=== PATIENT | female | born 2000 | race Caucasian/White ===

== ENCOUNTER 2018-02-10 08:00 | Outpatient (CLI) | payer OTHER | END 2018-02-10 08:01 | disposition home or self-care (01) | LOC: LAB.R 08:00 | PROVIDERS: ATTEND Obstetrics & Gynecology | DX: Z11.3 Encounter for screening for infections with a predominantly sexual mode of transmission (principal) | CPT/HCPCS: 87491; 87591 ==

== ENCOUNTER 2018-04-06 16:53 | Emergency (ER) | payer OTHER ==
--- NOTE | 2018-04-06 17:39 | ED Physician Documentation ---
PD HPI HEADACHE - Stated complaint Stated Complaint: DIZZINESS/NAUSEA - Chief complaint Chief Complaint: General - History obtained from History obtained from: Patient - History of Present Illness Timing - onset: Yesterday (had intermittent visual scotomata and "tunnel vision " yesterday but no headache until this morning, when noted migraine type headache but worse than usual ones. Has had occasional migraines recently, about every 3 weeks or so. Had not had aura/visual changes with them since childhood. No fevers, focal weakness, loss of vision, injury.) Timing - onset during: Sleep Timing - details: Gradual onset, Still present (lessening but still present through the day. She took Excedrin Migraine without improvement and this usually improves her migraines.) Worst headache ever?: No: Worst headache ever? (it is worse than usual migraines but not abrupt/severe headache) Location: Front, Left Quality: Throbbing, Aching Associated symptoms: Nausea. No: Fever, Stiff neck, Vomiting, Weakness, Numbness Improved by: No: Meds Worsened by: Light, Noise Contributing factors: No: Recent illness, Trauma Similar symptoms before: Diagnosis (migraines) Recently seen: Not recently seen Review of Systems Constitutional: denies: Fever, Chills, Myalgias Nose: denies: Rhinorrhea / runny nose, Congestion Throat: denies: Sore throat Respiratory: denies: Cough GI: denies: Nausea, Vomiting, Diarrhea Skin: denies: Rash Neurologic: reports: Headache. denies: Focal weakness, Numbness, Near syncope, Altered mental status, Head injury PD PAST MEDICAL HISTORY - Past Medical History Neuro: Migraines - Past Surgical History Past Surgical History: No - Present Medications Home Medications: Ambulatory Orders Medication Instructions Recorded Confirmed Ondansetron Odt [Zofran] 4 mg TL Q6H PRN #15 tablet 04/06/18 Sumatriptan Succinate [Imitrex] 50 mg PO ONCE PRN #9 tablet 04/06/18 - Allergies Allergies/Adverse Reactions: Allergies Allergy/AdvReac Type Severity Reaction Status Date / Time Penicillins AdvReac Hives Verified 04/06/18 17:02 - Social History Does the pt smoke?: Yes Smoking Status: Current every day smoker Does the pt drink ETOH?: No PD ED PE NORMAL - Vitals Vital signs reviewed: Yes - General General: Alert and oriented X 3, Well developed/nourished, Other (light sensitive) - HEENT HEENT: Atraumatic, Ears normal, Pharynx benign - Neck Neck: Supple, no meningeal sign, No adenopathy - Cardiac Cardiac: RRR, No murmur - Respiratory Respiratory: Clear bilaterally - Abdomen Abdomen: Soft, Non tender - Back Back: No CVA TTP - Derm Derm: Normal color, Warm and dry - Extremities Extremities: No deformity, No tenderness to palpate, Normal ROM s pain - Neuro Neuro: Alert and oriented X 3, fleet director 2-12 intact, No motor deficit, No sensory deficit, Normal speech Eye Opening: Spontaneous Motor: Obeys Commands Verbal: Oriented GCS Score: 15 - Psych Psych: Normal mood, Normal affect Results - Vitals Vitals: Oxygen O2 Source Room air - Labs Labs: Laboratory Tests 04/06/18 04/06/18 17:30 17:30 Urine Color YELLOW Urine Clarity CLEAR Urine pH 5.5 Ur Specific [place] 1.015 1.015 Urine Protein NEGATIVE Urine Glucose (UA) NEGATIVE Urine Ketones NEGATIVE Urine Occult Blood NEGATIVE Urine Nitrite NEGATIVE Urine Bilirubin NEGATIVE Urine Urobilinogen 0.2 (NORMAL) Ur Leukocyte Esterase NEGATIVE Ur Microscopic Review NOT INDICATED Urine Culture Comments NOT INDICATED Urine HCG, Qual NEGATIVE PD MEDICAL DECISION MAKING - ED course Complexity details: re-evaluated patient (initially was going to give subcut Imitrex after talking with her, but then she opted to not get "a shot". Gave oral instead and her headache was about gone after 20-30 minutes. No side effects. Feeling okay. Will give Rx for similar for home. ), considered differential (Sounds like migraine with aura, just a bit worse than her usual ones. ), d/w patient Departure - Departure Disposition: 01 Home, Self Care Clinical Impression: Migraine headache Qualifiers: Migraine type: with aura Status migrainosus presence: without status migrainosus Intractability: not intractable Qualified Code(s): G43.109 - Migraine with aura, not intractable, without status migrainosus Condition: Stable Record reviewed to determine appropriate education?: Yes Instructions: ED Headache Migraine Follow-Up: [facility] [Provider Group] Prescriptions: Ondansetron Odt [Zofran] 4 mg TL Q6H PRN #15 tablet PRN Reason: Nausea / Vomiting Sumatriptan Succinate [Imitrex] 50 mg PO ONCE PRN #9 tablet PRN Reason: Migraine Comments: For subsequent migraines, use the Excedrin Migraine if that is mild and adequate. For worse migraines use the Excedrin Migraine along with Imitrex and ondansetron (nausea medicine and migraine medicine). See if the combination works well for worse migraines. Follow-up with your primary care. If you have more frequent severe migraines, your primary care could also prescribe medications to try to reduce the frequency of them. These are taken on a daily basis rather than just when the headache starts. Typically this reserved for frequent or frequently severe headaches. Discharge Date/Time: 04/06/18 19:28
[2018-04-06 17:48] LABS: BILIRUBIN,URINE NEGATIVE (NEGATIVE); GLUCOSE, URINE (UA) NEGATIVE (NEGATIVE); KETONES,URINE (UA) NEGATIVE (NEGATIVE); LEUKOCYTE ESTERASE, URINE NEGATIVE (NEGATIVE); NITRITE,URINE NEGATIVE (NEGATIVE); OCCULT BLOOD,URINE NEGATIVE (NEGATIVE); PH,URINE 5.5 PH (5.0-7.5); PROTEIN,URINE NEGATIVE (NEGATIVE); UROBILINOGEN,URINE 0.2 (NORMAL) E.U./dL (NORMAL)
[2018-04-06 17:51] LABS: CLARITY,URINE CLEAR (CLEAR)
[2018-04-06 17:52] LABS: HCG UR QUAL NEGATIVE
[2018-04-06] MEDS ORDERED: SUMAtriptan 6 MG/0.5 ML VIAL SUBQ STA (18:09)
[2018-04-06] MEDS ORDERED: ONDANSETRON ODT 4 MG TABLET TL STA (18:09)
[2018-04-06] MEDS ORDERED: DEXAMETHASONE 10 MG/ML VIAL PO STA (18:09)
[2018-04-06] MEDS ORDERED: KETOROLAC 60 MG/2 ML VIAL IM STA (18:09)
[2018-04-06] MEDS ORDERED: SUMAtriptan 25 MG TABLET PO STA (18:37)
[2018-04-06 18:58] VITALS: BP 140/85
== END 2018-04-06 19:28 | disposition home or self-care (01) ==
LOC: ED 16:53
DX: G43.109 Migraine with aura, not intractable, without status migrainosus (principal); F17.200 Nicotine dependence, unspecified, uncomplicated
CPT/HCPCS: 81003; 81025; 99283; A9270; Q0162; 81001; 87086

== ENCOUNTER 2018-04-20 12:51 | Emergency (ER) | payer OTHER ==
[2018-04-20 13:22] LABS: HCG UR QUAL NEGATIVE
--- NOTE | 2018-04-20 15:32 | ED Physician Documentation ---
PD HPI ABD PAIN - Stated complaint Stated Complaint: ABD PAIN - Chief complaint Chief Complaint: Abd Pain - History obtained from History obtained from: Patient - History of Present Illness Timing - onset: Today (2 am) Timing - duration: Hours (10) Timing - details: Abrupt onset, Still present, Waxing and waning Quality: Cramping, Aching, Pain Location: RUQ, Epigastric Radiation: Upper back Improved by: No: Eating, Laying still Worsened by: Eating, Palpation. No: Moving, Breathing Associated symptoms: Nausea, Loss of appetite. No: Fever, Vomiting, Diarrhea, Chest pain, Dizzy, Near syncope / syncope Similar symptoms before: Has not had sx before Recently seen: Not recently seen Review of Systems Constitutional: denies: Fever, Chills Nose: denies: Rhinorrhea / runny nose, Congestion Throat: denies: Sore throat Cardiac: denies: Chest pain / pressure, Palpitations Respiratory: denies: Dyspnea, Cough GI: reports: Abdominal Pain, Nausea. denies: Abdominal Swelling, Vomiting, Diarrhea : denies: Dysuria, Frequency Skin: denies: Rash, Lesions Musculoskeletal: denies: Neck pain, Back pain Neurologic: denies: Generalized weakness, Focal weakness, Numbness PD PAST MEDICAL HISTORY - Past Medical History Neuro: Migraines - Past Surgical History Past Surgical History: No - Present Medications Home Medications: Ambulatory Orders Medication Instructions Recorded Confirmed Ondansetron Odt [Zofran] 4 mg TL Q6H PRN #15 tablet 04/06/18 Sumatriptan Succinate [Imitrex] 50 mg PO ONCE PRN #9 tablet 04/06/18 HYDROcod/ACETAM 5/325 [[place] 5/325] 1 tab PO Q6H PRN #15 tablet 04/20/18 Lidocaine Viscous 2% [Xylocaine 5 ml PO Q4H PRN #1 bottle 04/20/18 Viscous 2%] Ondansetron Odt [Zofran] 4 mg TL Q6H PRN #15 tablet 04/20/18 raNITIdine [Zantac] 150 mg PO BID #40 tablet 04/20/18 - Allergies Allergies/Adverse Reactions: Allergies Allergy/AdvReac Type Severity Reaction Status Date / Time Penicillins AdvReac Hives Verified 04/20/18 13:08 "cilins" Allergy Hives Uncoded 04/20/18 13:08 - Social History Does the pt smoke?: Yes Smoking Status: Current every day smoker Does the pt drink ETOH?: No PD ED PE NORMAL - Vitals Vital signs reviewed: Yes - General General: Alert and oriented X 3, No acute distress, Well developed/nourished - HEENT HEENT: PERRL (nonicteric), Pharynx benign - Neck Neck: Supple, no meningeal sign, No adenopathy - Cardiac Cardiac: RRR, No murmur - Respiratory Respiratory: Clear bilaterally - Abdomen Abdomen: Normal bowel sounds, Soft, Non distended, No organomegaly, Other ( Tender RUQ with some guarding and also epigastric area. No rebound nor percusssion tenderness. Tender [place] sign.) - Female Female : Deferred - Rectal Rectal: Deferred - Back Back: No CVA TTP - Derm Derm: Normal color, Warm and dry, No rash - Extremities Extremities: No deformity, No tenderness to palpate, Normal ROM s pain - Neuro Neuro: Alert and oriented X 3, locks tender 2-12 intact Eye Opening: Spontaneous Motor: Obeys Commands Verbal: Oriented GCS Score: 15 Results - Vitals Vitals: Oxygen O2 Source Room air - Labs Labs: Laboratory Tests 04/20/18 04/20/18 04/20/18 13:00 13:00 16:00 WBC 8.8 RBC 5.07 Hgb 14.6 Hct 44.7 MCV 88.1 MCH 28.7 MCHC 32.6 RDW 13.4 Plt Count 249 MPV 9.2 Neut # 4.7 Lymph # 2.9 [place] # 0.6 Eos # 0.4 Baso # 0.1 Absolute Nucleated RBC 0.00 Nucleated RBC % 0.0 Sodium Potassium Chloride Carbon Dioxide Anion Gap BUN Creatinine Estimated GFR (MDRD) Glucose Calcium Total Bilirubin AST ALT Alkaline Phosphatase Total Protein Albumin Globulin Albumin/Globulin Ratio Lipase Urine Color YELLOW Urine Clarity CLEAR Urine pH 6.0 Ur Specific [place] >=1.030 H >=1.030 H Urine Protein NEGATIVE Urine Glucose (UA) NEGATIVE Urine Ketones NEGATIVE Urine Occult Blood NEGATIVE Urine Nitrite NEGATIVE Urine Bilirubin NEGATIVE Urine Urobilinogen 0.2 (NORMAL) Ur Leukocyte Esterase NEGATIVE Ur Microscopic Review NOT INDICATED Urine Culture Comments NOT INDICATED Urine HCG, Qual NEGATIVE 04/20/18 16:00 WBC RBC Hgb Hct MCV MCH MCHC RDW Plt Count MPV Neut # Lymph # [place] # Eos # Baso # Absolute Nucleated RBC Nucleated RBC % Sodium 138 Potassium 3.5 Chloride 102 Carbon Dioxide 28 Anion Gap 8.0 BUN 16 Creatinine 0.8 Estimated GFR (MDRD) 92 Glucose 108 H Calcium 9.1 Total Bilirubin 0.6 AST 27 ALT 41 Alkaline Phosphatase 66 Total Protein 6.9 Albumin 3.9 Globulin 3.1 Albumin/Globulin Ratio 1.3 Lipase 29 Urine Color Urine Clarity Urine pH Ur Specific [place] Urine Protein Urine Glucose (UA) Urine Ketones Urine Occult Blood Urine Nitrite Urine Bilirubin Urine Urobilinogen Ur Leukocyte Esterase Ur Microscopic Review Urine Culture Comments Urine HCG, Qual - Rads (name of study) URQ U/S Radiology: Prelim report reviewed (multiple gallstones without signs of inflammation nor swelling. ) PD MEDICAL DECISION MAKING - ED course Complexity details: reviewed results (she has gallstones on U/S and the abrupt/ severe pain sounds like that, but no signs of inflammation on U/S and she did get some improvement with GI cocktail. ), considered differential (consider ulcers/gastritis, gallbladder process, pancreatitis, other concerns. ), d/w patient Departure - Departure Disposition: 01 Home, Self Care Clinical Impression: Upper abdominal pain, Gallstones Gastritis Qualifiers: Gastritis type: unspecified gastritis Chronicity: acute Gastritis bleeding: without bleeding Qualified Code(s): K29.00 - Acute gastritis without bleeding Condition: Stable Record reviewed to determine appropriate education?: Yes Instructions: ED Abdominal Pain Unkn Cause Follow-Up: [facility] [Provider Group] Parrish Sena MD [Provider Admit Priv/Credential] - Prescriptions: HYDROcod/ACETAM 5/325 [[place] 5/325] 1 tab PO Q6H PRN #15 tablet PRN Reason: Pain Lidocaine Viscous 2% [Xylocaine Viscous 2%] 5 ml PO Q4H PRN #1 bottle PRN Reason: Pain Ondansetron Odt [Zofran] 4 mg TL Q6H PRN #15 tablet PRN Reason: Nausea / Vomiting raNITIdine [Zantac] 150 mg PO BID #40 tablet Comments: The character of your pain with quick onset and severity is suggestive of gallbladder spasm. You do have some gallstones on ultrasound. However there is no signs of infection or inflammation of the gallbladder on ultrasound so it is not clear that that is the cause. He has some element that sounds like irritation of the stomach (gastritis or ulcer) and so we will treat that with ranitidine acid qualitative field coordinator along with some antacid with or without lidocaine if needed for pains. For worse pain you can use hydrocodone and if nauseous she can use ondansetron. Follow-up with your primary care or surgery office if you have repeated episodes over the next week or 2, call for an appointment. Discharge Date/Time: 04/20/18 17:59
[2018-04-20] MEDS ORDERED: ONDANSETRON ODT 4 MG TABLET TL STA (15:51)
[2018-04-20] MEDS ORDERED: MAG HYDROX/AL HYDROX/SIMETH 30 ML UDC PO STA (15:51)
[2018-04-20] MEDS ORDERED: LIDOCAINE VISCOUS 2% 15 ML UDC MM STA (15:51)
[2018-04-20] MEDS ORDERED: HYDROcod/ACETAM 5/325 MG TABLET PO STA (15:51)
[2018-04-20 16:13] LABS: BASOPHILS # (AUTO) 0.1 10^3/uL (0.0-0.1); EOSINOPHILS # (AUTO) 0.4 10^3/uL (0.0-0.7); EOSINOPHILS % (AUTO) 4.7 %; HGB - HEMOGLOBIN 14.6 g/dL (12.0-16.0); LYMPHOCYTES # (AUTO) 2.9 10^3/uL (1.5-3.5); LYMPHOCYTES % (AUTO) 33.5 %; MEAN CORPUSCULAR HEMOGLOBIN 28.7 pg (27.0-31.0); MEAN CORPUSCULAR HGB CONC 32.6 g/dL (32.0-36.0); MEAN CORPUSCULAR VOLUME 88.1 fL (81.0-99.0); MEAN PLATELET VOLUME 9.2 fL (7.9-10.8); MONOCYTES # (AUTO) 0.6 10^3/uL (0.0-1.0); MONOCYTES % (AUTO) 6.9 %; NEUTROPHILS # (AUTO) 4.7 10^3/uL (1.5-6.6); NEUTROPHILS % (AUTO) 53.9 %; PLT - PLATELET COUNT 249 10^3/uL (130-450); RED BLOOD COUNT 5.07 10^6/uL (4.20-5.40); RED CELL DISTRIBUTION WIDTH 13.4 % (12.0-15.0); WHITE BLOOD COUNT 8.8 x10^3/uL (4.8-10.8)
[2018-04-20 16:25] LABS: ALBUMIN/GLOBULIN RATIO 1.3 (1.0-2.2)
[2018-04-20 16:35] LABS: ALBUMIN 3.9 g/dL (3.2-5.5); BILIRUBIN,TOTAL 0.6 mg/dL (0.2-1.0); CALCIUM 9.1 mg/dL (8.5-10.3); CREATININE 0.8 mg/dL (0.4-1.0); TOTAL PROTEIN 6.9 g/dL (6.7-8.2)
--- NOTE | 2018-04-20 17:11 | Ultrasound Report ---
EXAM: ABDOMEN ULTRASOUND LIMITED, RUQ EXAM DATE: 04/20/2018 04:37 PM. CLINICAL HISTORY: Epigastric/RUQ pain, onset this morning. COMPARISON: None. TECHNIQUE: Real-time scanning was performed with static images obtained. FINDINGS: Liver: Normal in size. Hyperechoic echotexture. 17.6 cm. Main portal vein flow: Hepatopetal. Gallbladder: Multiple gallstones. No wall thickening. No point tenderness. Biliary System: CBD measures 2 mm. No intrahepatic or extrahepatic ductal dilatation. Other: The visualized pancreas and right kidney are unremarkable. No free fluid. IMPRESSION: 1. Multiple cholelithiasis without wall thickening or dilated ducts. 2. Fatty liver. [facility] Referring Provider Line: [phone] SITE ID: [id number]
[2018-04-20 18:00] VITALS: BP 119/83
[2018-04-20 23:33] LABS: BILIRUBIN,URINE NEGATIVE (NEGATIVE); GLUCOSE, URINE (UA) NEGATIVE (NEGATIVE); KETONES,URINE (UA) NEGATIVE (NEGATIVE); LEUKOCYTE ESTERASE, URINE NEGATIVE (NEGATIVE); NITRITE,URINE NEGATIVE (NEGATIVE); OCCULT BLOOD,URINE NEGATIVE (NEGATIVE); PROTEIN,URINE NEGATIVE (NEGATIVE); UROBILINOGEN,URINE 0.2 (NORMAL) E.U./dL (NORMAL)
[2018-04-20 23:34] LABS: CLARITY,URINE CLEAR (CLEAR)
== END 2018-04-20 17:59 | disposition home or self-care (01) ==
LOC: ED 12:51
DX: K29.00 Acute gastritis without bleeding (principal); K80.20 Calculus of gallbladder without cholecystitis without obstruction; K76.0 Fatty (change of) liver, not elsewhere classified; F17.200 Nicotine dependence, unspecified, uncomplicated
CPT/HCPCS: 36415; 76705; 80053; 81003; 81025; 83690; 85025; 99283; 99284; A9270; Q0162; 81001; 87086

== ENCOUNTER 2019-02-11 23:29 | Emergency (ER) | payer OTHER ==
[2019-02-11] MEDS ORDERED: BENZONATATE 100 MG CAPSULE PO STA (23:46)
[2019-02-11] MEDS ORDERED: DEXAMETHASONE 10 MG/ML VIAL PO STA (23:46)
--- NOTE | 2019-02-11 23:47 | ED Physician Documentation ---
PD HPI URI - Stated complaint Stated Complaint: COUGH,DIFF BREATHING - Chief complaint Chief Complaint: Resp - History obtained from History obtained from: Patient, Family - History of Present Illness Timing - onset: How many months ago (1) Timing duration: Months (1) Timing details: Gradual onset, Waxing and waning Pain level max: 0 Pain level now: 0 Associated symptoms: Nasal congestion, Rhinorrhea, Dry cough, Dyspnea (wheezing). No: Fever, Chills, Sweats, Ear pain Improves by: Rest Worsened by: Activity, Breathing - Additional information Additional information: Patient was seen at [facility] today. Negative chest x-ray. Given an inhaler. Review of Systems Constitutional: denies: Fever, Chills Respiratory: reports: Cough, Wheezing GI: denies: Abdominal Pain, Nausea, Vomiting, Diarrhea : denies: Now EGA Skin: denies: Rash Musculoskeletal: denies: Neck pain, Back pain Neurologic: denies: Headache PD PAST MEDICAL HISTORY - Past Medical History Past Medical History: Yes Neuro: Migraines - Past Surgical History Past Surgical History: Yes General: Cholecystectomy - Present Medications Home Medications: Ambulatory Orders Medication Instructions Recorded Confirmed Ondansetron Odt [Zofran] 4 mg TL Q6H PRN #15 tablet 04/06/18 Sumatriptan Succinate [Imitrex] 50 mg PO ONCE PRN #9 tablet 04/06/18 HYDROcod/ACETAM 5/325 [[place] 5/325] 1 tab PO Q6H PRN #15 tablet 04/20/18 Lidocaine Viscous 2% [Xylocaine 5 ml PO Q4H PRN #1 bottle 04/20/18 Viscous 2%] Ondansetron Odt [Zofran] 4 mg TL Q6H PRN #15 tablet 04/20/18 raNITIdine [Zantac] 150 mg PO BID #40 tablet 04/20/18 Benzonatate [Tessalon Perle] 100 - 200 mg PO TID PRN #30 capsule 02/12/19 - Allergies Allergies/Adverse Reactions: Allergies Allergy/AdvReac Type Severity Reaction Status Date / Time Penicillins AdvReac Hives Verified 04/20/18 13:08 "cilins" Allergy Hives Uncoded 04/20/18 13:08 - Social History Does the pt smoke?: Yes Smoking Status: Current every day smoker Does the pt drink ETOH?: No Does the pt have substance abuse?: No - Immunizations Immunizations are current?: Yes - POLST Patient has POLST: No PD ED PE NORMAL - Vitals Vital signs reviewed: Yes - General General: Alert and oriented X 3, No acute distress, Well developed/nourished - HEENT HEENT: PERRL, Ears normal, Moist mucous membranes, Pharynx benign - Neck Neck: Supple, no meningeal sign - Cardiac Cardiac: RRR, Strong equal pulses - Respiratory Respiratory: No respiratory distress, Other (Mild wheezing bilaterally) - Abdomen Abdomen: Soft, Non tender, Non distended - Derm Derm: Warm and dry, No rash - Extremities Extremities: No edema - Neuro Neuro: Alert and oriented X 3 - Psych Psych: Normal mood, Normal affect Results - Vitals Vitals: Vital Signs - 24 hr 02/11/19 02/12/19 23:31 00:22 Temperature 36.9 C Heart Rate 112 H 94 Respiratory 22 17 Rate Blood Pressure 130/80 129/83 H O2 Saturation 97 100 Oxygen O2 Source Room air PD MEDICAL DECISION MAKING - ED course Complexity details: re-evaluated patient, considered differential, d/w patient, d/w family ED course: 18-year-old female with what appears to be a viral upper respiratory infection. She was given an inhaler today but not instructed on how to use it. She was given a spacer here and taught how to use the spacer with the inhaler. She feels much better after this treatment. We will also prescribe cough medication for home. She is well-appearing, nontoxic. No hypoxia. No respiratory distress. Patient counseled regarding signs and symptoms for which I believe and urgent re-evaluation would be necessary. Patient with good understanding of and agreement to plan and is comfortable going home at this time This document was made in part using voice recognition software. While efforts are made to proofread this document, sound alike and grammatical errors may occur. Departure - Departure Disposition: 01 Home, Self Care Clinical Impression: Viral URI with cough Condition: Good Instructions: ED URI Viral W Wheezing Follow-Up: H[facility]SEIN VICKERS PA-C [Primary Care Provider] - Within 1 week Prescriptions: Benzonatate [Tessalon Perle] 100 - 200 mg PO TID PRN #30 capsule PRN Reason: Cough Comments: Continue the inhaler at home. Return if you worsen. This is likely a viral illness and should improve next week or 2. You should also stop smoking. Discharge Date/Time: 02/12/19 00:24
[2019-02-12 00:22] VITALS: BP 129/83
== END 2019-02-12 00:24 | disposition home or self-care (01) ==
LOC: ED 23:29
DX: J06.9 Acute upper respiratory infection, unspecified (principal); B97.89 Other viral agents as the cause of diseases classified elsewhere; F17.200 Nicotine dependence, unspecified, uncomplicated
CPT/HCPCS: 94664; 99283; A9270